=== PATIENT | male | born 1995 | race Caucasian/White ===

== ENCOUNTER 2017-06-17 10:53 | Day surgery (SDC) | payer OTHER ==
[2017-06-17 11:16] VITALS: BMI 23.9
[2017-06-17] MEDS ORDERED: MIDAZOLAM HCL 2 MG/2 ML SINGLE DOSE VIAL ONE (11:38)
[2017-06-17] MEDS ORDERED: ROPIVACAINE HCL 0.5% 30ML VIAL ONE (11:39)
[2017-06-17] MEDS ORDERED: PROPOFOL 20 ML ONE (12:17)
[2017-06-17] MEDS ORDERED: ONDANSETRON 4 MG/2 ML VIAL ONE (13:02)
[2017-06-17] MEDS ORDERED: BUPIVACAINE HCL/PF 2.5 MG/ML - 30 ML VIAL IJ ONE (14:02)
[2017-06-17] MEDS ORDERED: BUPIVACAINE HCL/PF 0.25% (2.5MG/ML) 10 ML VIAL IJ ONE (14:24)
[2017-06-17] MEDS ORDERED: oxyCODONE HCL 5 MG TABLET PO PRN (14:39)
[2017-06-17] MEDS ORDERED: ONDANSETRON 4 MG/2 ML VIAL IVPUSH PRN (14:39)
--- NOTE | 2017-06-17 14:56 | OP ---
Operative Note - Note: Operative Date: 06/17/17 Pre-Operative Diagnosis: left knee unstable osteochondral lesion and loose bodies Operation: left knee arthroscopy with excision of loose body x 2. open repair of osteochondral lesion Implants: accutrak mini screw x1 Post-Operative Diagnosis: Same as Pre-op Surgeon: Kwame Muñoz Anesthesiologist/LEAD TECHNICAL WRITER: Porter Damon Anesthesia: General Specimens Removed: 2x loose bodies
--- NOTE | 2017-06-17 16:06 | OP ---
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 PROCEDURE: Left knee arthroscopy with excision of loose bodies x2, open repair of osteochondral lesion. ANESTHESIA: General. POSTOPERATIVE CONDITION: Stable. COMPLICATIONS: None. IMPLANTS: Acutrak screw mini x1. INDICATIONS: This is a pleasant 22-year-old gentleman who had been suffering from years of on-and-off knee pain. We obtained an MRI which demonstrated an acutely loose osteochondral fragment in the trochlear region. Treatment options including nonoperative care versus operative care were discussed. Nonoperative care presents the risk of loss of stability of the remaining osteochondral fragment. We discussed that once the fragment is loose, repair becomes much more technically challenging, if not impossible. The loose bodies themselves can cause discomfort within the knee. We discussed the option of nonoperative care with observation over time. Alternatively, we discussed the option of operative care. This would involve removing the two loose bodies. The osteochondral lesion appears repairable at this point and given his young age, repair would be ideal. We discussed that the repair is done typically using a headless screw. This is a device that is temporary and does need to be removed at a later date to avoid further damage to the knee as osteoarthritis sets in in later years. I reviewed the surgical risks in detail including bleeding, infection, neurovascular injury, need for further surgery, postoperative pain and stiffness, nonunion and malunion. We discussed the possibility of progressing osteoarthritis. We discussed that just putting the piece back in place does not guarantee that it will heal. If it does not heal, the screw and piece will have to be removed. Sometimes, cartilage filling techniques can be used to help limit the onset of osteoarthritis in the future. I reviewed the medical risks such as heart attack, stroke, DVT, PE and . I addressed all of the patient's questions. I addressed all of his father's questions. They voiced understanding and elected to proceed. DESCRIPTION OF PROCEDURE: The patient was brought to the operating room where general anesthesia was administered. The left lower extremity was then prepped and draped in the usual sterile fashion. A preoperative dose of antibiotics was given and the usual timeout procedure was performed. A preoperative examination of the knee demonstrated that there is a slight loss of extension compared to the contralateral knee. There is good stability of the ligaments. There is no effusion palpable. The portal sites were then marked out. An 11 blade was then used to establish a portal after the limb had been exsanguinated and the tourniquet was inflated to 250 mmHg. The ArthroCare was now passed into the knee. Examination of the patellofemoral joint demonstrated that the medial side appeared copacetic. The lateral side demonstrated a large, highly unstable fragment of the lateral trochlea. The patellar side appeared to have some streak wear which was mild. The arthroscope was now passed down the trochlea into the notch. Here, two additional loose bodies were visualized. A medial portal was now established under spinal needle localization. The two loose bodies were removed using a mosquito clamp. The medial compartment and the lateral compartments were now examined, demonstrating no articular lesions and no meniscal lesions. The arthroscope was now used to withdraw the remainder of the fluid from the knee. It was then removed. Attention was now turned to the parapatellar region. Incision was carried down through the skin just lateral to the patella. It was carried down through skin to subcutaneous tissue. Electrocautery was used to maintain hemostasis. The retinaculum and capsule were identified and then split in line with the limb to expose the interior of the joint. The patella was retracted medially, exposing the osteochondral lesion. The fragment inside was hanging on by only a thin thread of cartilage and was easily removed from the defect. The defect measured approximately 1.4 cm around. Utilizing a curette, the soft tissue within the lesion was debrided. Using a K-wire, multiple trephinations were made into the base of the lesion. Blood was seen to egress from these trephinations. The piece itself was debrided on the back, again using the curette to expose the bony surface. The piece was now placed back into its [place] spot. Two K-wires were used to hold it in place. The more central K-wire was overdrilled using the Motion Traxxak drill bit. A 22-mm screw was then chosen and inserted into the fragment and then into the trough, securing it well into place and burying it by several threads to avoid penetration onto the articular surface. It was determined that given the size of the fragments, additional fixation was not viable. The two K-wires were now removed and the piece remained quite stable. At this point, the knee was irrigated. The capsule and retinaculum were repaired using no. 1 Vicryl. Subcutaneous tissue was repaired using 2-0 Vicryl. The skin was closed using 3-0 nylon. Sterile dressings were placed. The tourniquet was let down. The patient was extubated and transferred to the recovery room in stable condition after being placed into a knee immobilizer. Becky CHACON/[id number]
[2017-06-17 16:25] VITALS: TEMP 98
[2017-06-17 16:34] VITALS: BP 112/50; PULSE 60
--- NOTE | 2017-06-22 13:27 | PATH ---
Surgical Pathology Report Patient Name: MANE MELISSA [facility]. Rec. #: [id number] /Age/Gender: 1995 (Age: 22) / M Account: [id number] Location: [facility] AMBUL[facility] Taken: 06/17/2017 Received: 06/17/2017 Reported: 06/22/2017 Physicians: Kwame Muñoz M.D. Specimen(s) Received LEFT KNEE LOOSE BODY Clinical History Left knee osteochondritis, loose bodies Final Diagnosis KNEE, LEFT, LOOSE BODIES, REMOVAL: BENIGN BONE AND CARTILAGE WITH DEGENERATIVE CHANGES. Electronically Signed Ada Sutherland M.D. Gross Description Received in formalin labeled "left knee loose bodies," are 2 bolaños, irregular, hard portions of cartilage and possible bone measuring 1.5 x 1.0 x 0.8 cm and 1.9 x 1.2 x 0.8 cm. Brim And Crown Presser sections are submitted in one cassette, following decalcification. 06/18/2017 saudi06/18/2017
== END 2017-06-17 16:00 | disposition home or self-care (01) ==
LOC: FASU 10:53
PROVIDERS: ATTEND Orthopaedic Surgery Sports Medicine
PROC: 0SCD4ZZ Extirpation of Matter from Left Knee Joint, Percutaneous Endoscopic Approach (ICD-10-PCS; 2017-06-17)
PROC: 0SUD0KZ Supplement Left Knee Joint with Nonautologous Tissue Substitute, Open Approach (ICD-10-PCS; principal; 2017-06-17 12:50)
DX: M93.262 Osteochondritis dissecans, left knee (principal); M23.42 Loose body in knee, left knee
CPT/HCPCS: 94760

== ENCOUNTER 2018-05-19 10:01 | Day surgery (SDC) | payer OTHER ==
[2018-05-10 14:23] VITALS: BMI 26.6
[2018-05-19] MEDS ORDERED: PROPOFOL 20 ML ONE (12:57)
[2018-05-19] MEDS ORDERED: MIDAZOLAM HCL 2 MG/2 ML SINGLE DOSE VIAL ONE (12:57)
[2018-05-19] MEDS ORDERED: BUPIVACAINE HCL/PF 0.5% (5MG/ML) 10 ML VIAL ONE (13:04)
[2018-05-19] MEDS ORDERED: BUPIVACAINE HCL/PF 0.5% (5MG/ML) 10 ML VIAL IJ ONE (14:05)
[2018-05-19] MEDS ORDERED: ONDANSETRON 4 MG/2 ML VIAL ONE (14:39)
[2018-05-19] MEDS ORDERED: ONDANSETRON 4 MG/2 ML VIAL IVPUSH ONE (14:42)
[2018-05-19 14:46] VITALS: TEMP 97.8
--- NOTE | 2018-05-19 14:51 | OP ---
DATE OF OPERATION: 05/19/2018 PREOPERATIVE DIAGNOSIS: Cuboid, left knee, retained hardware, left knee. POSTOPERATIVE DIAGNOSIS: Cuboid, left knee, retained hardware, left knee. PROCEDURE: Removal of headless screw, revision of scar. SURGEON: Kwame Muñoz MD HEEL ATTACHER: [employer] whose skilled full assistance was necessary for the safe and timely performance of this procedure. Mr. Boyd was able to help provide limb positioning, traction as well as assist in the removal of the screw. ANESTHESIA: General plus local. POSTOPERATIVE CONDITION: Stable. COMPLICATIONS: None. INDICATIONS: This is a pleasant young gentleman who previously underwent osteochondral repair utilizing a metal screw. Given his young age, it was felt that the best option would be for removal of the screw to help prevent any further wear of this cartilage over time. We discussed the option of leaving the screw in with potential for causing cartilage damage. I reviewed surgical risks including bleeding, infection, neurovascular injury, need for further surgery, postoperative pain and stiffness, progression of arthritis. We discussed medical risks such as heart attack, stroke, DVT, PE, and . I reviewed the use of perioperative antibiotic and DVT prophylaxis. I addressed all of the patient's questions and concerns. He and his family voiced understanding and elected to proceed. DESCRIPTION OF PROCEDURE: The patient was brought to the operating room where general anesthesia was administered. The left lower extremity was prepped and draped in the usual sterile fashion. A preoperative dose of antibiotics was given, and the usual time-out procedure was performed. The previous scar was then marked out. The wound was then exsanguinated, and the tourniquet was inflated to 250 mmHg. The previous scar was now excised in an ellipsoid fashion. Sharp dissection was now carried down to the capsule. The capsule was now split just lateral to the patella attachment to allow the cuff for later repair. Upon entry into the capsule, the osteochondral lesion was seen to be healed. The screw was identified and removed. The screw was 100% intact. The knee was now copiously irrigated. The capsule was now repaired using No. 1 Vicryl. The subcutaneous tissue was approximated using 3-0 Vicryl. The skin was closed using a running 4-0 absorbable monofilament suture. Dermabond was placed. Sterile dressing was placed. The patient was extubated and transferred to the recovery room in stable condition. Becky [id number]
[2018-05-19] MEDS ORDERED: oxyCODONE HCL 5 MG TABLET PO PRN (15:20)
[2018-05-19] MEDS ORDERED: ONDANSETRON 4 MG/2 ML VIAL IVPUSH PRN (15:20)
[2018-05-19] MEDS ORDERED: LACTATED RINGERS SOLUTION 1,000 ML IV SCH (15:30)
[2018-05-19] MEDS ORDERED: oxyCODONE HCL 5 MG TABLET ONE (16:02)
[2018-05-19 16:57] VITALS: BP 119/57; PULSE 43
--- NOTE | 2018-05-25 17:36 | PATH ---
Surgical Pathology Report Patient Name: MANE MELISSA Med. Rec. #: [id number] /Age/Gender: 1995 (Age: 23) / M Account: [id number] Location: [facility] AMBUL[facility] Taken: 05/19/2018 Received: 05/19/2018 Reported: 05/25/2018 Physicians: Kwame Muñoz M.D. Specimen(s) Received LEFT KNEE HARDWARE Clinical History Left knee osteochondritis Final Diagnosis KNEE HARDWARE, LEFT, REMOVAL: SURGICAL HARDWARE. MACROSCOPIC DIAGNOSIS. Electronically Signed Ada Sutherland M.D. Gross Description Received fresh labeled "left knee hardware," is a 2.2 cm in length purple metallic screw. No soft tissue is present. No sections are submitted, gross only. 05/20/201805/20/2018
== END 2018-05-19 16:35 | disposition home or self-care (01) ==
LOC: FASU 10:01
PROVIDERS: ATTEND Orthopaedic Surgery Sports Medicine
PROC: 0SPD04Z Removal of Internal Fixation Device from Left Knee Joint, Open Approach (ICD-10-PCS; principal; 2018-05-19 13:46)
DX: Z47.2 Encounter for removal of internal fixation device (principal)
CPT/HCPCS: 73560-TC-LT-FY; 88300-TC; 94760

== ENCOUNTER 2022-04-09 06:18 | Day surgery (SDC) | payer BC, OTHER ==
[2022-04-01 13:12] VITALS: BMI 28.1
[2022-04-09] MEDS ORDERED: DEXAMETHASONE SOD PHOSPHATE 4 MG/1 ML VIAL ONE (07:21)
[2022-04-09] MEDS ORDERED: KETOROLAC TROMETHAMINE 30 MG/1 ML VIAL ONE (07:21)
[2022-04-09] MEDS ORDERED: ONDANSETRON 4 MG/2 ML VIAL ONE (07:21)
[2022-04-09] MEDS ORDERED: ceFAZolin SODIUM 1 GM VIAL ONE (07:21)
[2022-04-09] MEDS ORDERED: LIDOCAINE HCL/PF 2% SDV 5ML VIAL ONE (07:21)
[2022-04-09] MEDS ORDERED: MIDAZOLAM HCL 2 MG/2 ML SINGLE DOSE VIAL ONE (07:22)
[2022-04-09] MEDS ORDERED: PROPOFOL 40 ML ONE (07:22)
[2022-04-09] MEDS ORDERED: SUCCINYLCHOLINE CHLORIDE 200 MG/10 ML SYRINGE ONE (07:29)
[2022-04-09] MEDS ORDERED: BUPIVACAINE HCL/PF 0.25% (2.5MG/ML) 10 ML VIAL ONE (07:35)
[2022-04-09] MEDS ORDERED: ACETAMINOPHEN 1000 MG/100 ML BAG IVPB PRN (08:27)
[2022-04-09] MEDS ORDERED: oxyCODONE HCL 5 MG TABLET PO PRN ×2 (08:27)
[2022-04-09] MEDS ORDERED: ONDANSETRON 4 MG/2 ML VIAL IVPUSH PRN (08:27)
[2022-04-09 09:56] VITALS: RESP 16
[2022-04-09 10:26] VITALS: BP 108/60; PULSE 59; TEMP 97.9
== END 2022-04-09 10:35 | disposition home or self-care (01) ==
LOC: FASU 06:18
PROVIDERS: ATTEND Orthopaedic Surgery Sports Medicine
PROC: 0SBC4ZX Excision of Right Knee Joint, Percutaneous Endoscopic Approach, Diagnostic (ICD-10-PCS; 2022-04-09)
PROC: 0SBC4ZZ Excision of Right Knee Joint, Percutaneous Endoscopic Approach (ICD-10-PCS; principal; 2022-04-09 08:21)
DX: M25.861 Other specified joint disorders, right knee (principal)
CPT/HCPCS: 94760

== ENCOUNTER 2022-06-25 07:03 | Day surgery (SDC) | payer BC, OTHER ==
[2022-06-23 10:49] VITALS: BMI 28.8
[2022-06-25] MEDS ORDERED: THROMBIN (BOVINE) 5,000 UNIT VIAL TP ONE (07:33)
[2022-06-25] MEDS ORDERED: ONDANSETRON 4 MG/2 ML VIAL ONE (08:14)
[2022-06-25] MEDS ORDERED: DEXAMETHASONE SOD PHOSPHATE 4 MG/1 ML VIAL ONE (08:14)
[2022-06-25] MEDS ORDERED: SUCCINYLCHOLINE CHLORIDE 200 MG/10 ML SYRINGE ONE (08:15)
[2022-06-25] MEDS ORDERED: PROPOFOL 20 ML ONE (08:15)
[2022-06-25] MEDS ORDERED: MIDAZOLAM HCL 2 MG/2 ML SINGLE DOSE VIAL ONE (08:15)
[2022-06-25] MEDS ORDERED: ceFAZolin SODIUM 1 GM VIAL ONE (09:26)
[2022-06-25] MEDS ORDERED: TRANEXAMIC ACID 1000 MG/10 ML VIAL ONE (09:29)
[2022-06-25] MEDS ORDERED: oxyCODONE HCL 5 MG TABLET PO PRN ×2 (11:44)
[2022-06-25] MEDS ORDERED: ACETAMINOPHEN 1000 MG/100 ML BAG IVPB ONE (11:44)
[2022-06-25] MEDS ORDERED: ONDANSETRON 4 MG/2 ML VIAL IVPUSH PRN (11:44)
[2022-06-25] MEDS ORDERED: LACTATED RINGERS SOLUTION 1,000 ML IV SCH (11:45)
[2022-06-25] MEDS ORDERED: FENTANYL CITRATE/PF 50 MCG/ML VIAL ONE (11:53)
[2022-06-25 13:26] VITALS: BP 126/78; PULSE 78; RESP 19; TEMP 98
== END 2022-06-25 13:15 | disposition home or self-care (01) ==
LOC: FASU 07:03
PROVIDERS: ATTEND Orthopaedic Surgery Sports Medicine
PROC: 0YU Anatomical Regions, Lower Extremities, Supplement (ICD-10-PCS; principal; 2022-06-25 09:39)
DX: S83.31XA Tear of articular cartilage of right knee, current, initial encounter (principal); X58.XXXA Exposure to other specified factors, initial encounter; Y92.9 Unspecified place or not applicable; Y93.9 Activity, unspecified
CPT/HCPCS: 94760